=== PATIENT | female | born 1965 | race Caucasian/White ===

== ENCOUNTER 2017-02-27 06:29 | Day surgery (SDC) | payer OTHER ==
[2017-02-27 06:46] VITALS: BMI 33.0
[2017-02-27] MEDS ORDERED: Midazolam 2 MG/2 ML VIAL ONE (07:54)
[2017-02-27] MEDS ORDERED: Propofol 10 mg/ml Inj (20 ML) ONE (07:55)
[2017-02-27 08:17] VITALS: O2SAT 100
[2017-02-27 08:43] VITALS: TEMP 96.9
[2017-02-27] MEDS ORDERED: Lidocaine Hydrochloride 5 ML INJ ONE (08:43)
[2017-02-27 09:15] VITALS: BP 135/78; PULSE 62; RESP 12
== END 2017-02-27 10:10 | disposition home or self-care (01) ==
LOC: C.ENDO 06:29
PROVIDERS: ATTEND Internal Medicine
DX: D50.9 Iron deficiency anemia, unspecified (principal); K29.70 Gastritis, unspecified, without bleeding; B96.81 Helicobacter pylori [H. pylori] as the cause of diseases classified elsewhere; K64.8 Other hemorrhoids; K57.90 Diverticulosis of intestine, part unspecified, without perforation or abscess without bleeding
CPT/HCPCS: 43239; 45378; 88305; J2250; J2704